=== PATIENT | female | born 1985 | race Caucasian/White ===

== ENCOUNTER 2021-12-01 22:28 | Inpatient (IN) | payer MEDICAID, OTHER ==
[2021-12-01] MEDS ORDERED: ONDA8TAB8 PO (23:09)
[2021-12-01] MEDS ORDERED: OLOP5DRO6 OU (23:09)
[2021-12-01] MEDS ORDERED: DOXY100C3 PO (23:09)
[2021-12-01] MEDS ORDERED: LORA-674 PO (23:09)
[2021-12-02 00:33] LABS: HEMATOCRIT 39.8 % (36.0-47.0); HEMOGLOBIN 13.6 g/dl (12.0-15.5); MEAN CORPUSCULAR HEMOGLOBIN 31.2 pg (27.0-33.0); MEAN CORPUSCULAR HGB CONC 34.2 g/dl (32.0-36.5); MEAN CORPUSCULAR VOLUME 91.3 fl (80.0-96.0); PLATELET COUNT, AUTOMATED 342 10^3/uL (150-450); RED BLOOD COUNT 4.36 10^6/uL (4.00-5.40); WHITE BLOOD COUNT 6.7 10^3/uL (4.0-10.0)
[2021-12-02 00:57] LABS: ACETAMINOPHEN LEVEL < 2.0 UG/ML (10.0-30.0); ALBUMIN 3.5 GM/DL (3.2-5.2); ALT/SGPT 65 U/L (12-78); BILIRUBIN,TOTAL 0.2 MG/DL (0.2-1.0); BLOOD UREA NITROGEN 10 MG/DL (7-18); CALCIUM LEVEL 8.6 MG/DL (8.5-10.1); CARBON DIOXIDE LEVEL 32 MEQ/L (21-32); CHLORIDE LEVEL 106 MEQ/L (98-107); CREATININE FOR GFR 0.67 MG/DL (0.55-1.30); ETHYL ALCOHOL (ETHANOL) < 0.003 % (0.000-0.010); GLOMERULAR FILTRATION RATE > 60.0 (>60); GLUCOSE, FASTING 106 MG/DL (70-100); MAGNESIUM LEVEL 2.2 MG/DL (1.8-2.4); POTASSIUM SERUM 3.8 MEQ/L (3.5-5.1); SALICYLATE LEVEL 3.6 MG/DL (5.0-30.0); SODIUM LEVEL 140 MEQ/L (136-145); TOTAL PROTEIN 6.5 GM/DL (6.4-8.2)
[2021-12-02 00:59] LABS: ATYPICAL LYMPH 5 % (0-5); EOSINOPHILS 9 % (0-3); LYMPHOCYTES 28 % (16-44); MONOCYTES 12 % (0-5); NEUTROPHILS 46 % (28-66)
[2021-12-02 01:00] LABS: PLATELET ESTIMATE NORMAL (NORMAL)
[2021-12-02 02:27] LABS: THYROID STIMULATING HORMONE 0.671 uIU/ML (0.358-3.740)
[2021-12-02 02:43] LABS: AMPHETAMINES LEVEL URINE NEGATIVE (NEGATIVE); BARBITURATES URINE NEGATIVE (NEGATIVE); BENZODIAZEPINES URINE NEGATIVE (NEGATIVE); CANNABINOIDS URINE POSITIVE (NEGATIVE); COCAINE METABOLITE URINE NEGATIVE (NEGATIVE); METHADONE URINE NEGATIVE (NEGATIVE); OPIATES URINE NEGATIVE (NEGATIVE); PHENCYCLIDINE URINE NEGATIVE (NEGATIVE)
[2021-12-02] MEDS ORDERED: COMBIVENT RESPIMAT 100-20MCG INHALER 4GM INH ONE (07:35)
[2021-12-02] MEDS ORDERED: dexameTHASONE 4 MG/ML 1ML VIAL (J1100 PER 1MG) IV ONE (07:35)
[2021-12-02] MEDS ORDERED: HOME MED LIST COMPLETE! XX SCH (08:05)
[2021-12-02 08:37] LABS: ABG BASE EXCESS 2.2 (-2.0-2.0); ABG HCO3 27.6 MEQ/L (22.0-26.0); ABG O2 SATURATION 94.7 % (95.0-99.0); ABG PARTIAL PRESSURE CO2 45.4 mmHg (35.0-45.0); ABG PARTIAL PRESSURE O2 70.7 mmHg (75.0-100.0); ABG STANDARD HCO3 26.4 MEQ/L (22.0-26.0); ABG TOTAL CO2 28.9 MEQ/L (22.0-29.0); ABG pH (ARTERIAL) 7.401 UNITS (7.350-7.450)
[2021-12-02 08:45] LABS: C REACTIVE PROTEIN QUANTITATIV 1.64 MG/DL (0.00-0.30); FERRITIN 122 NG/ML (8-252)
[2021-12-02] MEDS: LORATADINE 10 MG TAB PO SCH (09:00)
[2021-12-02 09:57] LABS: URINE PREG TEST NEGATIVE (NEGATIVE)
[2021-12-02 10:10] LABS: LDH LACTATE DEHYDROGENASE 201 U/L (84-246); NT-PRO BNP 96 PG/ML (<125)
[2021-12-02 10:30] LABS: INR 1.01; PROTHROMBIN TIME 13.7 SECONDS (12.7-14.5)
[2021-12-02 10:31] LABS: PARTIAL THROMBOPLASTIN TIME 33.6 SECONDS (25.9-37.0)
[2021-12-02 10:35] LABS: D-DIMER QUANT 644.42 ng/ml (<500)
[2021-12-02] MEDS ORDERED: REMDESIVIR 200 MG in NS 250 ML IV ONE (14:00)
[2021-12-02 14:15] VITALS: O2SAT 94
[2021-12-02 14:20] VITALS: BP 140/66
[2021-12-02] MEDS ORDERED: SODIUM CHLORIDE 0.9% INJ 10 ML SYR IV ONE (15:00)
[2021-12-02] MEDS: ACETAMINOPHEN TAB 650MG DOSE (2X325MG) PO PRN (15:38)
[2021-12-02 16:00] VITALS: O2SAT 94
[2021-12-02 20:00] VITALS: BP 101/53; O2SAT 97
[2021-12-03] MEDS: ACETAMINOPHEN TAB 650MG DOSE (2X325MG) PO PRN (04:02)
[2021-12-03 04:21] VITALS: BP 116/64
[2021-12-03 08:03] LABS: HEMATOCRIT 37.5 % (36.0-47.0); HEMOGLOBIN 12.8 g/dl (12.0-15.5); MEAN CORPUSCULAR HEMOGLOBIN 31.6 pg (27.0-33.0); MEAN CORPUSCULAR HGB CONC 34.1 g/dl (32.0-36.5); MEAN CORPUSCULAR VOLUME 92.6 fl (80.0-96.0); PLATELET COUNT, AUTOMATED 316 10^3/uL (150-450); RED BLOOD COUNT 4.05 10^6/uL (4.00-5.40)
[2021-12-03 08:24] LABS: ALBUMIN 2.9 GM/DL (3.2-5.2); ALT/SGPT 49 U/L (12-78); BILIRUBIN,DIRECT < 0.1 MG/DL (0.0-0.2); BILIRUBIN,TOTAL 0.2 MG/DL (0.2-1.0); BLOOD UREA NITROGEN 10 MG/DL (7-18); CARBON DIOXIDE LEVEL 28 MEQ/L (21-32); CHLORIDE LEVEL 109 MEQ/L (98-107); CHOLESTEROL LEVEL 107 MG/DL (<200); CHOLESTEROL RISK RATIO 2.431 (<5); CREATININE FOR GFR 0.58 MG/DL (0.55-1.30); GLOMERULAR FILTRATION RATE > 60.0 (>60); GLUCOSE, FASTING 130 MG/DL (70-100); HDL CHOLESTEROL 44 MG/DL (>40); LDL CHOLESTEROL 51 MG/DL (<100); NON-HDL-C 63 MG/DL; POTASSIUM SERUM 3.2 MEQ/L (3.5-5.1); SODIUM LEVEL 143 MEQ/L (136-145); TOTAL PROTEIN 6.2 GM/DL (6.4-8.2); TRIGLYCERIDES LEVEL 61 MG/DL (<150)
[2021-12-03 08:29] LABS: HEMOGLOBIN A1c 5.1 %
[2021-12-03 08:34] LABS: ATYPICAL LYMPH 9 % (0-5); EOSINOPHILS 3 % (0-3); LYMPHOCYTES 38 % (16-44); MONOCYTES 11 % (0-5); NEUTROPHILS 38 % (28-66)
[2021-12-03 08:37] LABS: ANISOCYTOSIS 1+; PLATELET ESTIMATE NORMAL (NORMAL)
[2021-12-03 08:38] LABS: SCHISTOCYTES 1+
[2021-12-03] MEDS ORDERED: ASPIRIN 81 MG CHEW TABLET PO SCH (09:00)
[2021-12-03] MEDS ORDERED: BACITRACIN OINTMENT 30GM TUBE TOP SCH (09:00)
[2021-12-03] MEDS ORDERED: OLOPATADINE 0.1% OPHTH SOL 5ML(PATANOL) OU SCH (09:00)
[2021-12-03] MEDS: LORATADINE 10 MG TAB PO SCH (09:41)
[2021-12-03] MEDS ORDERED: POTASSIUM CHLORIDE 10MEQ SR TABLET PO ONE (10:20)
[2021-12-03] MEDS ORDERED: NICOTINE 21MG/24HR 1 EA TRANSDERMAL TD SCH (10:40)
[2021-12-03] MEDS ORDERED: ASPI81CH8 PO (10:47)
[2021-12-03] MEDS ORDERED: REMDESIVIR 100 MG in NS 250 ML IV SCH (14:00)
[2021-12-03] MEDS ORDERED: SODIUM CHLORIDE 0.9% INJ 10 ML SYR IV SCH (15:00)
[2021-12-04] MEDS ORDERED: ENOXAPARIN 40MG/0.4ML SYRINGE (J1650 PER 10MG) SC SCH (09:00)
== END 2021-12-03 11:00 | disposition home or self-care (01) | DRG 137 ==
LOC: M ED 22:28 → M ED INP 12-02 08:42 → ENRESERV 12-02 13:48 → M 4MAIN 12-02 14:15
PROVIDERS: ADMIT Internal Medicine; ATTEND Internal Medicine
PROC: XW033E5 Introduction of Remdesivir Anti-infective into Peripheral Vein, Percutaneous Approach, New Technology Group 5 (ICD-10-PCS; principal; 2021-12-02)
PROC: 3E0333Z Introduction of Anti-inflammatory into Peripheral Vein, Percutaneous Approach (ICD-10-PCS; 2021-12-02)
DX: U07.1 COVID-19 (principal); G45.9 Transient cerebral ischemic attack, unspecified; R41.82 Altered mental status, unspecified; R29.810 Facial weakness; R47.1 Dysarthria and anarthria; Z79.899 Other long term (current) drug therapy; Z88.0 Allergy status to penicillin; F12.10 Cannabis abuse, uncomplicated; F15.10 Other stimulant abuse, uncomplicated; F17.210 Nicotine dependence, cigarettes, uncomplicated; F29 Unspecified psychosis not due to a substance or known physiological condition; Z59.00 Homelessness unspecified

== ENCOUNTER 2021-12-17 00:40 | Emergency (ER) | payer OTHER ==
[~2021-12-17] VITALS: Ht 160 cm; Wt 66.8 kg
[~2021-12-17 00:40] MED LIST: ASPI81CH8 PO; DOXY100C3 PO; LORA-674 PO; OLOP5DRO6 OU; ONDA8TAB8 PO
[2021-12-17 11:29] VITALS: BP 167/67
[2021-12-17] MEDS ORDERED: ONDANSETRON 4 MG ORAL DISINTEGRATING TAB PO ONE (11:35)
[2021-12-17] MEDS ORDERED: OMEPRAZOLE 20MG CAP PO ONE (11:35)
[2021-12-17 12:42] LABS: HEMOGLOBIN 13.2 g/dl (12.0-15.5); MEAN CORPUSCULAR HEMOGLOBIN 31.4 pg (27.0-33.0); MEAN CORPUSCULAR HGB CONC 33.8 g/dl (32.0-36.5); MEAN CORPUSCULAR VOLUME 92.9 fl (80.0-96.0); PLATELET COUNT, AUTOMATED 286 10^3/uL (150-450); WHITE BLOOD COUNT 7.5 10^3/uL (4.0-10.0)
[2021-12-17 12:59] LABS: ALBUMIN 3.1 GM/DL (3.2-5.2); BILIRUBIN,DIRECT 0.1 MG/DL (0.0-0.2); BILIRUBIN,TOTAL 0.2 MG/DL (0.2-1.0); TOTAL PROTEIN 6.1 GM/DL (6.4-8.2)
[2021-12-17 13:05] LABS: EOSINOPHILS 3 % (0-3); LYMPHOCYTES 28 % (16-44); MONOCYTES 8 % (0-5); NEUTROPHILS 61 % (28-66); PLATELET ESTIMATE NORMAL (NORMAL)
[2021-12-17] MEDS ORDERED: MIRA3350 PO (15:27)
[2021-12-17] MEDS ORDERED: ONDA4TAB6 PO (15:43)
== END 2021-12-17 15:54 | disposition home or self-care (01) ==
LOC: M ED 00:40
DX: K42.9 Umbilical hernia without obstruction or gangrene (principal); R22.2 Localized swelling, mass and lump, trunk; B00.1 Herpesviral vesicular dermatitis; K59.00 Constipation, unspecified; Z79.899 Other long term (current) drug therapy; Z97.5 Presence of (intrauterine) contraceptive device; Z88.0 Allergy status to penicillin; F17.210 Nicotine dependence, cigarettes, uncomplicated
CPT/HCPCS: 36415; 74176; 80047; 80076; 83690; 84702; 85025; 99284; Q0162

== ENCOUNTER → 2024-04-20 | Outpatient (REF) | payer OTHER, MEDICAID ==
[~2024-04-20] MED LIST changes: +LORA-1041 PO; -LORA-674 PO; +MIRA3350 PO; +ONDA-282 PO; +ONDA-284 PO; -ONDA8TAB8 PO
[2024-04-20 18:06] LABS: APPEARANCE, URINE CLOUDY (CLEAR); BACTERIA, URINE AUTO 2+ (NEGATIVE); BILIRUBIN, URINE AUTO NEGATIVE (NEGATIVE); BLOOD, URINE BLOOD 2+ (NEGATIVE); COLOR, URINE AMBER (YELLOW); GLUCOSE, URINE (UA) AUTO NEGATIVE (NEGATIVE); KETONE, URINE AUTO TRACE mg/dL (NEGATIVE); LEUKOCYTE ESTERASE, URINE AUTO 2+ (NEGATIVE); MUCUS, URINE SMALL (NEGATIVE); NITRITE, URINE AUTO NEGATIVE (NEGATIVE); PROTEIN, URINE AUTO 3+ mg/dL (NEGATIVE); RBC, URINE AUTO 41 /HPF (0-3); SPECIFIC GRAVITY URINE AUTO 1.017 (1.002-1.035); SQUAMOUS EPITHELIAL CELL UR AU 20 /HPF (0-6); WBC, URINE AUTO TNTC /HPF (0-3)
== END ==
LOC: M SMT 17:05
PROVIDERS: ATTEND Urology
DX: Z87.440 Personal history of urinary (tract) infections (principal)

== ENCOUNTER → 2024-05-19 | Outpatient (REF) | payer MEDICAID, OTHER ==
[2024-05-19 18:26] LABS: APPEARANCE, URINE CLEAR (CLEAR); BACTERIA, URINE AUTO 1+ (NEGATIVE); BILIRUBIN, URINE AUTO NEGATIVE (NEGATIVE); BLOOD, URINE BLOOD NEGATIVE (NEGATIVE); COLOR, URINE STRAW (YELLOW); GLUCOSE, URINE (UA) AUTO NEGATIVE (NEGATIVE); KETONE, URINE AUTO NEGATIVE (NEGATIVE); LEUKOCYTE ESTERASE, URINE AUTO NEGATIVE (NEGATIVE); NITRITE, URINE AUTO NEGATIVE (NEGATIVE); PROTEIN, URINE AUTO NEGATIVE (NEGATIVE); RBC, URINE AUTO 0 /HPF (0-3); SPECIFIC GRAVITY URINE AUTO 1.004 (1.002-1.035); SQUAMOUS EPITHELIAL CELL UR AU 0 /HPF (0-6); UROBILINOGEN, URINE AUTO 0.2 mg/dL (0.0-2.0); WBC, URINE AUTO 0 /HPF (0-3)
[2024-05-21 12:37] LABS: Candida species NOT DETECTED (NOT DETECTED); Gardnerella vaginalis NOT DETECTED (NOT DETECTED); Trichamonas vaginalis NOT DETECTED (NOT DETECTED)
== END ==
LOC: M SMT 17:00
PROVIDERS: ATTEND Urology
DX: Z87.440 Personal history of urinary (tract) infections (principal)